=== PATIENT | female | born 1945 | race Caucasian/White ===

== ENCOUNTER → 2016-08-30 | Outpatient (REF) | payer MEDICARE, BC ==
[2016-08-30 12:11] LABS: BASO % 0.5 % (0.0-1.0); EOS # 0.1 K/mm3 (0.0-0.50); EOS % 1.4 % (0.0-3.0); LARGE UNSTAINED CELL # 0.2 K/mm3 (0.0-0.4); LARGE UNSTAINED CELL % 2.5 % (0.0-4.0); LYMPH % 12.7 % (24.0-44.0); MEAN CORPUSCULAR HEMOGLOBIN 31.1 pg (27.0-33.0); MEAN CORPUSCULAR HGB CONC 32.8 g/dl (32.0-36.5); MEAN CORPUSCULAR VOLUME 94.6 fl (80.0-96.0); MONO # 0.6 K/mm3 (0.0-0.8); MONO % 7.2 % (0.0-5.0); NEUTROPHILS # 5.8 K/mm3 (1.8-7.7); NEUTROPHILS % 75.7 % (36.0-66.0); PLATELET COUNT, AUTOMATED 196 k/mm3 (150-450); RED CELL DISTRIBUTION WIDTH 12.2 % (11.5-14.5); WHITE BLOOD COUNT 7.7 K/mm3 (4.0-10.0)
[2016-08-30 12:27] LABS: ALBUMIN/GLOBULIN RATIO 1.38 (1.00-1.93); ALKALINE PHOSPHATASE 68 U/L (45-117); ALT/SGPT 39 U/L (12-78); ANION GAP 10 MEQ/L (8-16); AST/SGOT 29 U/L (15-37); BILIRUBIN,DIRECT 0.2 MG/DL (0.0-0.2); BILIRUBIN,TOTAL 0.6 MG/DL (0.2-1.0); BLOOD UREA NITROGEN 13 MG/DL (7-18); CALCIUM LEVEL 9.9 MG/DL (8.8-10.2); CARBON DIOXIDE LEVEL 27 MEQ/L (21-32); CHLORIDE LEVEL 103 MEQ/L (98-107); CREATININE FOR GFR 0.91 MG/DL (0.55-1.02); GLOMERULAR FILTRATION RATE > 60.0 (>45); GLUCOSE, FASTING 96 MG/DL (80-110); POTASSIUM SERUM 4.4 MEQ/L (3.5-5.1); SODIUM LEVEL 140 MEQ/L (136-145); THYROXINE (T4) 13.3 UG/DL (4.5-12.0); TOTAL PROTEIN 6.9 GM/DL (6.4-8.2)
== END ==
LOC: M LABDRAW1 11:30
PROVIDERS: ATTEND Family Medicine
DX: E03.9 Hypothyroidism, unspecified (principal); I48.1 Persistent atrial fibrillation

== ENCOUNTER 2018-11-24 11:16 | Emergency (ER) | payer MEDICARE, BC ==
[~2018-11-24] VITALS: Ht 160 cm; Wt 90.9 kg
[2018-11-24] MEDS ORDERED: LISI10TA4 (11:28)
[2018-11-24] MEDS ORDERED: CITA20TA6 (11:28)
[2018-11-24] MEDS ORDERED: SIMV40TA2 (11:28)
[2018-11-24] MEDS ORDERED: TENO1TAB3 (11:28)
[2018-11-24] MEDS ORDERED: ELIQ5TAB (11:28)
[2018-11-24] MEDS ORDERED: SYNT100T (11:28)
[2018-11-24] MEDS ORDERED: TETANUS/DIPHTHERIA TOX ADSORB ADULT 0.5ML SYR/VIAL (90714) IM ONE (12:15)
[2018-11-24] MEDS ORDERED: LIDOCAINE 2% MDV 20 ML VIAL As Ordered ONE (12:17)
[2018-11-24] MEDS ORDERED: LIDOCAINE 2% W/EPIN INJ 20ML **PRES FREE INFIL ONE (12:30)
--- NOTE | 2018-11-24 12:30 | REP ---
CT Head without contrast HISTORY: Trauma COMPARISON: 09/29/2013 Areas of decreased attenuation are present in the periventricular white matter. This represents small-vessel ischemic disease. There is no intraparenchymal hemorrhage, acute infarct, mass or midline shift. The ventricular system and cortical sulci are dilated consistent with minimal volume loss. There is no extra cerebral collection. There is no fracture. The visualized sinuses are clear. IMPRESSION: 1. Small vessel ischemic disease. 2. Minimal volume loss. Electronically Signed by Danyel Tam MD 11/24/2018 12:22 P
--- NOTE | 2018-11-24 12:36 | REP ---
CT cervical spine without contrast HISTORY: Trauma COMPARISON: 09/29/2013 There is no acute fracture . Disc bulges are present at the C3-4 through C5-6 levels. There is minimal narrowing of the spinal canal. Uncinate process and/or facet hypertrophy are present at the C3-4 through C7-T1 levels. These findings produce minimal to mild narrowing of the the neural foramina. The C4-5 through C6-7 intervertebral discs are decreased in height consistent with disc degeneration. There are 2 mm of anterior subluxation of C4-5. IMPRESSION: 1. There is no acute fracture or subluxation. 2. There is cervical spondylosis at the C3-4 through C7-T1 levels. Electronically Signed by Danyel Tam MD 11/24/2018 12:28 P
[2018-11-24] MEDS ORDERED: CEPHALEXIN 500 MG CAP PO ONE (13:30)
[2018-11-24] MEDS ORDERED: KEFL500C17 PO (13:33)
[2018-11-24] MEDS ORDERED: ROLLMIS8 XX ×2 (13:36→13:46)
[2018-11-24 13:45] VITALS: BP 145/71
--- NOTE | 2018-11-24 13:52 | REP ---
Right knee series: Four views. History: Injury in a fall. Findings: Four views of the right knee are presented. Apparently, the patient could not position for sunrise view. There is a soft tissue deficit anterior to the patella on the lateral radiograph consistent with a laceration. There is nonarticular spurring of the patella at its superior pole quadriceps tendon insertion. There is mild osteoarthritic patellar spurring as well. There is medial compartment osteoarthritic spurring and sclerosis. Diffuse osteopenia is noted. No fracture or joint effusion is seen. Impression: Soft tissue deficit in the prepatellar soft tissues on lateral radiograph consistent with laceration. 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 No acute bony abnormality. Electronically Signed by Lane Mccollum MD 11/24/2018 08:39 P
== END 2018-11-24 14:20 | disposition home or self-care (01) ==
LOC: M ED 11:16
DX: S09.90XA Unspecified injury of head, initial encounter (principal); S81.012A Laceration without foreign body, left knee, initial encounter; W01.198A Fall on same level from slipping, tripping and stumbling with subsequent striking against other object, initial encounter; Y92.018 Other place in single-family (private) house as the place of occurrence of the external cause; I10 Essential (primary) hypertension; E07.9 Disorder of thyroid, unspecified; I48.91 Unspecified atrial fibrillation; Z79.01 Long term (current) use of anticoagulants

== ENCOUNTER → 2021-12-18 | Outpatient (CLI) | payer MEDICARE, BC ==
[~2021-12-18] MED LIST: CITA20TA6; ELIQ5TAB; KEFL500C17 PO; LISI10TA22; ROLLMIS8 XX; SIMV40TA20; SYNT100T; TENO1TAB3
== END ==
LOC: M WHC 09:03
PROVIDERS: ATTEND Nurse Practitioner Family
DX: Z12.31 Encounter for screening mammogram for malignant neoplasm of breast (principal)

== ENCOUNTER → 2022-12-20 | Outpatient (CLI) | payer MEDICARE, BC | LOC: M WHC 12:32 | PROVIDERS: ATTEND Nurse Practitioner Family | DX: Z12.31 Encounter for screening mammogram for malignant neoplasm of breast (principal); Z13.820 Encounter for screening for osteoporosis; M85.851 Other specified disorders of bone density and structure, right thigh; M85.852 Other specified disorders of bone density and structure, left thigh ==

== ENCOUNTER → 2023-12-25 | Outpatient (CLI) | payer MEDICARE, BC | LOC: M WHC 07:49 | PROVIDERS: ATTEND Nurse Practitioner Family | DX: Z12.31 Encounter for screening mammogram for malignant neoplasm of breast (principal) ==

== ENCOUNTER → 2025-03-04 | Outpatient (CLI) | payer MEDICARE, BC | LOC: M WHC 09:25 | PROVIDERS: ATTEND Nurse Practitioner Family | DX: Z12.31 Encounter for screening mammogram for malignant neoplasm of breast (principal); Z13.820 Encounter for screening for osteoporosis; M85.851 Other specified disorders of bone density and structure, right thigh; R92.323 Mammographic fibroglandular density, bilateral breasts ==